=== PATIENT | male | born 1990 | race Caucasian/White ===

== ENCOUNTER 2024-07-04 21:57 | Emergency (ER) | payer OTHER, SELFPAY ==
[2024-07-04 22:00] VITALS: BP 148/92; PULSE 108; RESP 18; TEMP 36.7; O2SAT 100; BMI 28.6
--- NOTE | 2024-07-04 22:49 | ED.GENADULT ---
HPI - General Adult General Chief complaint: Skin/Abscess/Foreign Body Stated complaint: left elbow infection Time Seen by Provider: 07/04/24 22:38 Source: patient Mode of arrival: ambulatory Limitations: no limitations History of Present Illness ED Provider: [facility] narrative: Presenting with left upper extremity swelling from proximal to distal crossing the elbow area, I started yesterday, questioning bite, after taking down a tree, went to urgent care started antibiotics took 2 doses, redness spread distally, range of motion of the elbows improving no fevers or chills reported. He is otherwise healthy. Related Data Previous Rx's ?Medication ?Instructions ?Recorded sulfamethoxazole 800 1 tab PO BID 5 days #10 tabs 07/04/24 mg-trimethoprim 160 mg tablet (Bactrim DS) Allergies Allergy/AdvReac Type Severity Reaction Status Date / Time JUST FOR MEN HAIR COLOR Allergy Mild HIVES AND Uncoded 07/04/24 22:02 ITCHING (LOCALIZED) Review of Systems Constitutional: Constitutional: Reports as per [facility] Social History Social History Advance Directives: No Advance Directives Information Provided: Yes Do you have a plan to hurt others: No Plan Physical Exam ED Vital Signs: Vital Signs - 24 hr 07/04/24 22:00 Temperature 98.0 F Pulse Rate 108 H Respiratory Rate 18 Blood Pressure 148/92 H Pulse Oximetry 100 Oxygen Delivery Method Room Air BMI result Body Mass Index 28.6 Const Other: Overall well-appearing patient alert and oriented x4 Examination of left upper extremity, full range of motion of the shoulder, elbow wrist distal pulses intact, proximal distal compartments are soft, erythema from the distal posterior humerus to the mid forearm some circumferential involvement of the forearm. Medical Decision Making Medical Decision Making [facility] Narrative: presenting with either cellulitis or inflammatory reaction to a bite, reassuringly the joint is not involved on, compartments are soft, he is otherwise healthy, there was no evidence of this is arterial insufficiency or venous insufficiency, my other considerations were as below, did not feel any further imaging which ultrasound of x-rays indicated or blood work we will be helpful. He is covered with Bactrim 5 days I will extend that course Differential Diagnosis Differential Diagnoses: The differential diagnosis associated with the presentation includes cellulitis, septic bursitis, septic joint, DVT, deep space infection such as necrotizing fasciitis Admission/Observation Consideration of admission/observation: Escalation of care including admission/observation considered Discharge Plan Discharge Clinical Impression: Cellulitis Patient Disposition: Home, Self-Care Instructions: Cellulitis (ED) Additional Instructions: as discussed I considered that is this is either cellulitis or actually a bug bite which can also lead to cellulitis, does not look like it is affecting your joint either wrist or elbow, Bactrim is a good antibiotic to cover no skin infections, instead of 5 days I would like to extend it for 7 days with option to extend to 10 days, continue icing the area, continue compressive wrap, as discussed antibiotics take up to 72 hours to start working so worsening redness in the initial phase of treatment is not unusual. Inability to straight no elbow or shoulder or wrist, redness going up into her armpit that is more worrisome I would like you to come back for that. You should have no issues to return to ER for re-evaluation if you have any worries about this. and this does not look like septic olecranon bursitis either. Prescriptions: New sulfamethoxazole-trimethoprim [Bactrim DS] 800-160 mg tablet 1 tab PO BID 5 Days Qty: 10 0RF Print Language: Trinid[place]
[2024-07-04 23:11] VITALS: BP 148/92; PULSE 108; RESP 18; TEMP 36.7; O2SAT 100
== END 2024-07-04 23:14 | disposition home or self-care (01) ==
PROVIDERS: Emergency Provider Emergency Medicine
DX: L03.114 Cellulitis of left upper limb (principal); M79.89 Other specified soft tissue disorders
CPT/HCPCS: 99282; 99283